=== PATIENT | male | born 1940 | race Caucasian/White ===

== ENCOUNTER → 2019-12-06 10:14 | Outpatient (BNVA) | payer MEDICARE, MEDICAID, SELFPAY | PROVIDERS: Family Provider Nurse Practitioner Family; PCP Nurse Practitioner Family; Visit Provider Nurse Practitioner Family | DX: E78.5 Hyperlipidemia, unspecified (principal); E55.9 Vitamin D deficiency, unspecified; Z00.00 Encounter for general adult medical examination without abnormal findings; I10 Essential (primary) hypertension; M15.9 Polyosteoarthritis, unspecified | CPT/HCPCS: 80053; 80061; 82306; 85025 ==

== ENCOUNTER → 2020-12-03 15:07 | Outpatient (BNVA) | payer MEDICARE, MEDICAID, SELFPAY | PROVIDERS: Family Provider Nurse Practitioner Family; PCP Nurse Practitioner Family; Visit Provider Nurse Practitioner Family | DX: Z00.00 Encounter for general adult medical examination without abnormal findings (principal); I10 Essential (primary) hypertension; E55.9 Vitamin D deficiency, unspecified; E78.5 Hyperlipidemia, unspecified; M15.9 Polyosteoarthritis, unspecified; Z12.5 Encounter for screening for malignant neoplasm of prostate | CPT/HCPCS: 80053; 80061; 82306; 84443; 85025; G0103 ==

== ENCOUNTER → 2021-03-30 13:24 | Outpatient (BNVA) | payer MEDICARE, MEDICAID, SELFPAY | PROVIDERS: Family Provider Nurse Practitioner Family; PCP Nurse Practitioner Family; Visit Provider Nurse Practitioner Family | DX: M10.9 Gout, unspecified (principal); I10 Essential (primary) hypertension | CPT/HCPCS: 80053; 84550; 85025 ==

== ENCOUNTER 2021-06-01 03:51 | Inpatient (IN) | payer MEDICARE, SELFPAY ==
[2021-06-01] VITALS (16 sets, daily range): BP systolic 108–171; BP diastolic 77–105; PULSE 65–99; RESP 16–24; TEMP 36.4–36.9; O2SAT 87–96; BMI 28.7
--- NOTE | 2021-06-01 04:14 | XRR_ITS ---
PROCEDURE INFORMATION: Exam: XR Chest Exam date and time: 06/01/2021 4:14 AM Age: 80 years old Clinical indication: Shortness of breath; Patient HX: Patient states has been having steadily worsening SOB over last few months. Claims no prior cardiopulmonary issues. TECHNIQUE: Imaging protocol: XR of the chest. Views: 1 view. COMPARISON: No relevant prior studies available. FINDINGS: Lungs: Low lung volumes. There is extensive bilateral airspace opacities, in a predominantly peripheral distribution. Pleural spaces: Unremarkable. No pleural effusion. No pneumothorax. Heart/Mediastinum: Mildly enlarged heart. Bones/joints: Unremarkable. XR/XR chest 1V portable [id number] IMPRESSION: Imaging findings concerning for multifocal pneumonia.
--- NOTE | 2021-06-01 04:27 | ED_ITS ---
HPI - SOB/Dyspnea General: Chief Complaint: Shortness of Breath/Dyspnea Stated Complaint: Sob\Cough Time Seen by Provider: 06/01/21 04:09 Source: patient Mode of arrival: ambulatory Limitations: no limitations History of Present Illness: HPI Narrative: 80-year-old male presents here with increasing shortness of breath over the last 3 months he states that he is just having increasing dyspnea that got much worse this week he states that it is much worse with any exertion improved with rest has had a slight cough denies any fever denies any vomiting denies any chest pain. He has not seen anyone last 3 months for his shortness of breath Associated symptoms: Deny abdominal pain, chest pain, fever(s), nausea or vo miting Review of Systems Const: Denies: fever(s), chills, body aches or change in appetite Eyes: Denies: blurry vision or eye discomfort ENMT: Denies: throat pain or dental pain Card: Denies: chest pain Resp: Reports: dyspnea and non-productive cough GI: Denies: abdominal pain, nausea, vomiting or diarrhea : Denies: dysuria Musc: Denies: neck pain or back pain Skin/Breast: Denies: rash Neuro: Denies: headache(s) Psych: Denies: depression [place]/Lymph: Denies: easy bruising All/Imm: Denies: urticaria PFSH ED PFSH: Medical History Hyperlipidemia Hypertension Osteoarthritis Vitamin D deficiency Family History Family/Other Cancer CAD (coronary artery disease) Social History Quit status (tobacco): has quit using tobacco Second hand smoke exposure: No Alcohol intake: never Lives independently: Yes Household members: spouse Marital status: Current occupational status: retired Current occupational exposures/hazards: No History of recent travel: No Current gender identity: Male Physical Exam Const: COMMON NORMALS: patient oriented x3 and healthy appearing GENERAL APPEARANCE: in distress HENMT: COMMON NORMALS: normocephalic and atraumatic HEAD & SCALP: normocephalic and atraumatic Eye: COMMON NORMALS: Equal, round and reactive pupils present and EOMs intact bilaterally PUPIL: Yes Equal, round and reactive pupils present Neck/C-Spine: COMMON NORMALS: full ROM and supple Chest: COMMONS NORMALS: normal inspection of the chest and normal palpation of entire chest wall Resp: COMMON NORMALS: No retractions and No use of accessory muscles EFFORT & INSPECTION: Yes tachypneic and Yes respiratory distress AUSCULTATION: rales Cardio: COMMON NORMALS: regular rate, regular rhythm and No murmurs present (Cardio) RATE: regular rate RHYTHM: regular rhythm GI: COMMON NORMALS: Normal to inspection, nondistended, normoactive bowel sounds present, Soft to palpation, non-tender and no masses PALPATION: Yes Soft to palpation Extremity: COMMON NORMALS: normal to inspection and full ROM Neuro: COMMON NORMALS: patient oriented x3, moves all extremities and no focal motor deficits Psych: COMMON NORMALS: mental status grossly normal, Normal thought process present and cooperative THOUGHT PROCESS: Normal thought process present Skin: COMMON NORMALS: no rashes or lesions noted and no wounds GENERAL SKIN EXAM: no rashes or lesions noted Course Vital Signs: Vital signs: Vital Signs Temperature 98.5 F 06/01/21 03:59 Pulse Rate 99 06/01/21 03:59 Respiratory Rate 21 H 06/01/21 03:59 Blood Pressure 108/105 06/01/21 03:59 Pulse Oximetry 87 L 06/01/21 03:59 MDM - SOB/Dyspnea MDM Narrative: Medical decision making narrative: Patient presents with cough dyspnea x-ray does show bilateral pneumonia patient here is in the 80s on room air is requiring oxygen start IV antibiotics and spoke to hospitalist will admit. Lab Data: Labs: Lab Results 06/01/21 06/01/21 06/01/21 04:30 04:30 04:30 WBC 9.2 10^3/uL 10^3/ uL (4.0-10.0) RBC 4.75 10^6/uL 10^6 /uL (4.1-5.3) Hgb 14.6 g/dL g/dL (11.7-16.6) Hct 44.5 % % (42.0-52.0) MCV 93.7 fl fl (80-94) MCH 30.7 pg pg (28.0-34.0) MCHC 32.8 g/dL g/dL (30.0-36.0) RDW 12.3 % % (12.1-15.1) Plt Count 435 10^3/cmm H 10 ^3/cmm (130-400) MPV 11.6 fL H fL (7.4-10.4) Neut % (Auto) 68.9 % % Lymph % (Auto) 16.5 % % [place] % (Auto) 11.8 % % Eos % (Auto) 1.0 % % Baso % (Auto) 1.5 % % Neut # (Auto) 6.32 10^3/uL 10^3 /uL (1.8-7.7) Lymph # (Auto) 1.5 10^3/uL 10^3/ uL (0.8-4.8) [place] # (Auto) 1.1 10^3/uL H 10^ 3/uL (0.2-0.9) Eos # (Auto) 0.1 10^3/uL 10^3/ uL (0.0-0.8) Baso # (Auto) 0.1 10^3/uL 10^3/ uL (0.0-0.1) Nucleated RBC % (a uto) 0 % % Nucleated RBCs # 0.0 /100WBC /100W BC PT 13.70 SECONDS SEC ONDS (12.1-14.9) INR 1.02 (0.8-1.2) SARS-CoV-2 Ag (Rap id) Negative (Negative) Imaging Data^: CXR: Attestation: I personally reviewed and interpreted this imaging study as follows: Radiologist's impression: [address] [address] XRay Report Signed Patient: Oj Stewart Unit #: [id number] : 1940 Age/Sex: 80 / M ADM Date: 06/01/21 Loc: ER Room/Bed: Attending Dr: Ordering Provider/Ordering MD: Peyman Clayton MD Date of Service: 06/01/21 Procedure(s): XR chest 1V portable [id number] Accession Number(s): [id number] Report Number: [id number] PROCEDURE INFORMATION: Exam: XR Chest Exam date and time: 06/01/2021 4:14 AM Age: 80 years old Clinical indication: Shortness of breath; Patient HX: Patient states has been having steadily worsening SOB over last few months. Claims no prior cardiopulmonary issues. TECHNIQUE: Imaging protocol: XR of the chest. Views: 1 view. COMPARISON: No relevant prior studies available. FINDINGS: Lungs: Low lung volumes. There is extensive bilateral airspace opacities, in a predominantly peripheral distribution. Pleural spaces: Unremarkable. No pleural effusion. No pneumothorax. Heart/Mediastinum: Mildly enlarged heart. Bones/joints: Unremarkable. XR/XR chest 1V portable [id number] IMPRESSION: Imaging findings concerning for multifocal pneumonia. Dictated By: Eris Ramirez Signed By: Eris Ramirez Signed Date/Time: 06/01/21 0436 DD/ 0414 EKG Data^: EKG 1: Attestation: I personally reviewed and interpreted this EKG as follows: EKG Interpretation Date: 06/01/21 EKG interpretation time: 04:07 Interpretation: nsr hr [address] or t wave abnormalities qrs 138 qtc 429 Discharge Plan Discharge Patient Disposition: Admitted As Inpatient Clinical Impression: Acute respiratory failure with hypoxia Community acquired pneumonia Qualifiers: Laterality: unspecified laterality Qualified Code(s): J18.9 - Pneumonia, unspecified organism Condition: Stable Coding Level of Care Code ED Patrol Police Sergeant for Chg Fwd Exam Comprehensive
[2021-06-01] MEDS: ipratropium-albuterol 3 mL Neb INHALATION ×4 (04:35→20:20)
[2021-06-01 04:55] LABS: Basophils # 0.1 10^3/uL (0.0-0.1); Basophils % 1.5 %; Eosinophils # 0.1 10^3/uL (0.0-0.8); Hematocrit 44.5 % (42.0-52.0); Hemoglobin 14.6 g/dL (11.7-16.6); Lymphocytes # 1.5 10^3/uL (0.8-4.8); Lymphocytes % 16.5 %; Mean Corpuscular HGB Conc 32.8 g/dL (30.0-36.0); Mean Corpuscular Hemoglobin 30.7 pg (28.0-34.0); Mean Corpuscular Volume 93.7 fl (80-94); Mean Platelet Volume 11.6 fL (7.4-10.4); Monocytes # 1.1 10^3/uL (0.2-0.9); Monocytes % 11.8 %; Neutrophils # 6.32 10^3/uL (1.8-7.7); Neutrophils % 68.9 %; Nucleated Red Blood Cells % 0 %; Platelet Count 435 10^3/cmm (130-400); Red Blood Count 4.75 10^6/uL (4.1-5.3); Red Cell Distribution Width 12.3 % (12.1-15.1); White Blood Count 9.2 10^3/uL (4.0-10.0)
[2021-06-01 05:06] LABS: INR 1.02 (0.8-1.2)
[2021-06-01 05:12] LABS: SARS Covid-2 Antigen Negative (Negative)
[2021-06-01] MEDS: cefTRIAXone 1,000 MG in sodium chloride 0.9% (plus) 50 ML 100 MG IV (05:18)
[2021-06-01 05:30] LABS: Alanine Aminotransferase 11 U/L (0-41); Albumin Level 3.4 g/dL (3.5-5.2); Alkaline Phosphatase 79 IU/L (40-130); Anion Gap 14.4 (5-19); Aspartate Amino Transferase 16 U/L (0-40); Blood Urea Nitrogen 12 mg/dL (8-23); Carbon Dioxide 26 mmol/L (22-29); Chloride 104 mmol/L (98-107); Globulin 4.1 g/dL (1.3-4.6); Glucose 111 mg/dL (65-115); NT Pro B Type Natriuretic Pept 426 pg/mL (0-450); Osmolality Calculated 292 mOsm/kg (285-295); Potassium 3.4 mmol/L (3.5-5.1); Sodium 141 mmol/L (136-145); Total Bilirubin 0.3 mg/dL (0.15-1.2); Total Protein 7.5 g/dL (6.6-8.7)
[2021-06-01] MEDS: azithromycin 500 MG in sodium chloride 0.9% 250 ML 250 MG IV (05:48)
--- NOTE | 2021-06-01 06:47 | CTR_ITS ---
PROCEDURE INFORMATION: Exam: CTA Chest With Contrast Exam date and time: 06/01/2021 6:47 AM Age: 80 years old Clinical indication: Shortness of breath; Additional info: Evalute for pe, multiocal infiltrates on cxr TECHNIQUE: Imaging protocol: Computed tomographic angiography of the chest with contrast. 3D rendering (Not supervised by radiologist): MIP and/or 3D reconstructed images were created by the technologist. Radiation optimization: All CT scans at this facility use at least one of these dose optimization techniques: automated exposure control; mA and/or kV adjustment per patient size (includes targeted exams where dose is matched to clinical indication); or iterative reconstruction. Contrast material: OMNI 350; Contrast volume: 78 ml; Contrast route: INTRAVENOUS (IV); COMPARISON: CR (CHEST, ) 06/01/2021 4:17 AM RADIATION DOSE METRICS: Total DLP (mGy-cm): 574.66 FINDINGS: Pulmonary arteries: Normal. No pulmonary emboli. Aorta: Unremarkable. No aortic aneurysm. No aortic dissection. Trachea: Small tracheal diverticulum noted. Lungs: There is ground-glass opacities scattered throughout both lungs in a predominantly peripheral distribution. Pleural spaces: There is a small bilateral pleural effusions, left greater than right. Heart: Normal heart size. Coronary atherosclerotic calcifications seen. No pericardial effusion. Lymph nodes: Unremarkable. No enlarged lymph nodes. Liver: Hepatic cysts noted, the largest measuring 3.8 cm. The liver is otherwise unremarkable. Bones/joints: Degenerative changes of the spine seen. Soft tissues: Unremarkable. CT/CT angio chest PE protcl [id number] IMPRESSION: 1. No pulmonary embolus. 2. Commonly reported imaging features of (COVID-19) pneumonia are present. Other processes such as influenza pneumonia and organizing pneumonia, as can be seen with drug toxicity and connective tissue disease, can cause a similar imaging pattern. 3. Small bilateral pleural effusions.
--- NOTE | 2021-06-01 07:02 | PM.HP ---
Providers/Chief Complaint Admitting Physician: Kim Andrew MD Primary Care Provider: ZEN Johnson Chief Complaint: Sob\Cough History of Present Illness Oj Stewart is a 80 year old male presenting with 2 weeks of generalized weakness, malaise, dry cough and dyspnea. States dyspnea has been getting progressively worse which brought him to the ER. Denies past h/o COPD, CAD, smoking. His tested + for COVID one week ago but has since improved. He has not been tested prior to today. CXR shows B/L multifocal pneumonia. Rapid Covid neg, pending PCR. Ccurrently on 3lpm supplemental 02. No past 02 requirement. Denies chest pain, palpitations. ROS negative for diarrhea, vomiting , fever. unvaccinated for covid. Review of Systems General: Reports: 10 or more systems reviewed and unremarkable except in HPI and below Const: Denies: fever(s), chills or body aches Eyes: Denies: change in vision, blurry vision or photophobia ENMT: Reports: hoarseness; Denies: throat pain, enlarged tonsils, odynophagia or nasal congestion Card: Denies: chest pain, palpitations, irregular heart rhythm, edema, swelling of feet/ankles, lightheadedness, pre-syncope, dyspnea on exertion or orthopnea Resp: Denies: dyspnea, productive cough, non-productive cough, wheezing, stridor, pain on inspiration, change in phlegm color, hemoptysis or chest congestion GI: Denies: abdominal pain, nausea, vomiting, hematemesis, coffee ground emesis, dysphagia, heartburn, diarrhea, constipation, GI cramping, change in stool character, hematochezia or melena : Denies: flank pain, dysuria, urinary frequency, urinary urgency, urinary hesitancy or hematuria Musc: Denies: neck pain, back pain, extremity pain, joint swelling, joint warmth or deformity Neuro: Denies: headache(s), numbness in extremities, weakness in extremities, sensory changes, difficulty walking, frequent falls, dizziness, vertigo, behavioral changes, Slurred speech present or seizure-like activity Psych: Denies: anxiety, depression, suicidal ideation or homicidal ideation Endo: Denies: polyuria, polydipsia, tired all the time, cold intolerance or hot flashes Gabino/Lymph: Denies: easy bruising or easy bleeding Medications/Allergies Home Medications Medication Instructions Recorded Confirmed Last Taken Type aspirin 81 mg tablet,delayed 81 mg PO DAILY 12/06/19 03/30/21 Unknown History release omega-3 fatty acids 1,000 mg 1,000 mg PO DAILY 12/06/19 03/30/21 Unknown History capsule cholecalciferol (vitamin D3) 50 50 mcg PO DAILY #30 tab 12/19/19 03/30/21 Unknown Rx mcg (2,000 unit) tablet ibuprofen 600 mg tablet 600 mg PO Q6H PRN #120 tab 12/03/20 03/30/21 Unknown Rx lisinopril 40 mg tablet 40 mg PO DAILY #90 tab 12/03/20 03/30/21 Unknown Rx pravastatin 20 mg tablet 20 mg PO DAILY #90 tab 12/03/20 03/30/21 Unknown Rx methylprednisolone 4 mg tablets in See Rx Instructions PO PER PKG DIR 03/30/21 03/30/21 Unknown Rx a dose pack #21 ea Allergies Allergy/AdvReac Type Severity Reaction Status Date / Time No Known Allergies Allergy Verified 03/30/21 10:01 PFSH Acute PFSH: Medical History Hyperlipidemia Hypertension Osteoarthritis Vitamin D deficiency Family History Family/Other Cancer CAD (coronary artery disease) Social History Quit status (tobacco): has quit using tobacco Second hand smoke exposure: No Alcohol intake: never Lives independently: Yes Household members: spouse Marital status: Current occupational status: retired Current occupational exposures/hazards: No History of recent travel: No Current gender identity: Male Vitals/I&O/Wt Last Vital Signs Temp 98.5 F 06/01/21 03:59 Pulse 99 06/01/21 03:59 Resp 20 H 06/01/21 06:18 BP 150/79 06/01/21 06:18 Pulse Ox 95 06/01/21 06:18 05/31/21 06/01/21 06/01/21 22:59 06:59 14:59 Intake Total 50 / 50 Balance 50 / 50 Weight last 48 hrs Weight 90.718 kg Physical Exam Narrative: EXAM NARRATIVE: General: No acute distress, AO x3 HEENT: PERRLA, pupils bilaterally equal and reactive, pallors not present Chest:scattered wheezing and coarse breath sounds B/L CVS: S1-S2 regular, no murmurs, no tachycardia, no gallops, no rubs Abdomen: Soft, nontender, no organomegaly, bowel sounds present Neuro: No focal deficits, no facial deformity, AO x3, power 5/5 in all limbs Extremities: no edema, clubbing or cyanosis Neuro: COMMON NORMALS: no focal motor deficits Data : 06/01/21 04:30 06/01/21 04:30 Attestation for Other Data: I personally reviewed and interpreted the following: Other data: Laboratory Results WBC 9.2 10^3/uL (4.0-10.0) 06/01/21 04:30 RBC 4.75 10^6/uL (4.1-5.3) 06/01/21 04:30 Hgb 14.6 g/dL (11.7-16.6) 06/01/21 04:30 Hct 44.5 % (42.0-52.0) 06/01/21 04:30 MCV 93.7 fl (80-94) 06/01/21 04:30 MCH 30.7 pg (28.0-34.0) 06/01/21 04:30 MCHC 32.8 g/dL (30.0-36.0) 06/01/21 04:30 RDW 12.3 % (12.1-15.1) 06/01/21 04:30 Plt Count 435 10^3/cmm (130-400) H 06/01/21 04:30 MPV 11.6 fL (7.4-10.4) H 06/01/21 04:30 Neut % (Auto) 68.9 % 06/01/21 04:30 Lymph % (Auto) 16.5 % 06/01/21 04:30 [place] % (Auto) 11.8 % 06/01/21 04:30 Eos % (Auto) 1.0 % 06/01/21 04:30 Baso % (Auto) 1.5 % 06/01/21 04:30 Neut # (Auto) 6.32 10^3/uL (1.8-7.7) 06/01/21 04:30 Lymph # (Auto) 1.5 10^3/uL (0.8-4.8) 06/01/21 04:30 [place] # (Auto) 1.1 10^3/uL (0.2-0.9) H 06/01/21 04:30 Eos # (Auto) 0.1 10^3/uL (0.0-0.8) 06/01/21 04:30 Baso # (Auto) 0.1 10^3/uL (0.0-0.1) 06/01/21 04:30 Nucleated RBC % (auto) 0 % 06/01/21 04:30 Nucleated RBCs # 0.0 /100WBC 06/01/21 04:30 PT 13.70 SECONDS (12.1-14.9) 06/01/21 04:30 INR 1.02 (0.8-1.2) 06/01/21 04:30 Sodium 141 mmol/L (136-145) 06/01/21 04:30 Potassium 3.4 mmol/L (3.5-5.1) L 06/01/21 04:30 Chloride 104 mmol/L (98-107) 06/01/21 04:30 Carbon Dioxide 26 mmol/L (22-29) 06/01/21 04:30 Anion Gap 14.4 (5-19) 06/01/21 04:30 BUN 12 mg/dL (8-23) 06/01/21 04:30 Creatinine 1.2 mg/dL (0.7-1.2) 06/01/21 04:30 GFR Calculation Not Reportable 06/01/21 04:30 Glucose 111 mg/dL (65-115) 06/01/21 04:30 Calculated Osmolality 292 mOsm/kg (285-295) 06/01/21 04:30 Calcium 8.0 mg/dL (8.5-10.5) L 06/01/21 04:30 Total Bilirubin 0.3 mg/dL (0.15-1.2) 06/01/21 04:30 AST 16 U/L (0-40) 06/01/21 04:30 ALT 11 U/L (0-41) 06/01/21 04:30 Alkaline Phosphatase 79 IU/L (40-130) 06/01/21 04:30 NT-Pro-B Natriuret Pep 426 pg/mL (0-450) 06/01/21 04:30 Total Protein 7.5 g/dL (6.6-8.7) 06/01/21 04:30 Albumin 3.4 g/dL (3.5-5.2) L 06/01/21 04:30 Globulin 4.1 g/dL (1.3-4.6) 06/01/21 04:30 SARS-CoV-2 Ag (Rapid) Negative (Negative) 06/01/21 04:30 Impressions Chest X-Ray 06/01/21 04:14 IMPRESSION: Imaging findings concerning for multifocal pneumonia. A&P Assessment and plan (1) Bilateral pneumonia: presenting with multifocal B/L pneumonia high suspicion for covid given antecedent clinical history, unvaccinated check covid PCR, influenza Ag, sputum cx and MRSA PCR CTA chest to evaluate for PE additionally start presumptively on dexamethasone 6mg IVP q24h, can be discontinued if COVID negative Empiric abx Zosyn and azithromycin iel awaiting covid pcr Check procal, d dimer, CRP duoneb q6h and budesonide q12h inhalation supplemental 02 to keep sat >92% Status: Acute (2) Hypoxia: as a result of multifocal pneumonia , management as above Status: Acute Attestations Medical Necessity Statement*: >2midnight admission will be needed for above defined management Coding Level of Care Code 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
[2021-06-01] MEDS: iohexol 350 mg/mL 100 mL Btl IV (07:12)
[2021-06-01 07:36] LABS: Procalcitonin 0.05 ng/mL (0-0.5)
[2021-06-01 07:53] LABS: C Reactive Protein 7.2 mg/L (0.0-4.9)
[2021-06-01] MEDS: lisinopril 20 mg Tablet 40 MG PO (08:24)
[2021-06-01] MEDS: atorvastatin 40 mg Tablet 20 MG PO (08:24)
[2021-06-01] MEDS: aspirin 81 mg EC Tablet PO (08:24)
[2021-06-01] MEDS: dexamethasone 4 mg/mL INJ 6 MG IVP (08:25)
[2021-06-01] MEDS: enoxaparin 40 mg/0.4 mL Syringe SUBCUT (08:25)
[2021-06-01] MEDS: pantoprazole DR 40 mg Tablet PO (08:25)
[2021-06-01] MEDS: piperacillin-tazobactam 3.375 GM in sodium chloride 0.9% (plus) 50 ML IV ×3 (08:25→22:47)
[2021-06-01] MEDS: budesonide 0.5 mg/2 mL Neb INHALATION ×2 (10:11→20:20)
[2021-06-01 11:07] LABS: Adenovirus Not Detected (NOT DETECT); Chlamydia Pneumoniae Not Detected (NOT DETECT); Coronavirus 229E,HKU1,NL63,OC4 Not Detected (NOT DETECT); Human Metapneumovirus Not Detected (NOT DETECT); Human Rhinovirus/Enterovirus Not Detected (NOT DETECT); Influenza A Not Detected (NOT DETECT); Influenza A H1 Not Detected (NOT DETECT); Influenza A H1-2009 Not Detected (NOT DETECT); Influenza A H3 Not Detected (NOT DETECT); Influenza B Not Detected (NOT DETECT); Mycoplasma Pneumoniae Not Detected (NOT DETECT); Parainfluenza Virus Type 1 Not Detected (NOT DETECT); Parainfluenza Virus Type 2 Not Detected (NOT DETECT); Parainfluenza Virus Type 3 Not Detected (NOT DETECT); Parainfluenza Virus Type 4 Not Detected (NOT DETECT); Respiratory Syncytial Virus A Not Detected (NOT DETECT); Respiratory Syncytial Virus B Not Detected (NOT DETECT); SARS-COV-2 Detected (NOT DETECT)
--- NOTE | 2021-06-01 13:16 | ECG_ITS ---
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 Measurements Intervals [place] Rate: 89 P: 28 GA: 169 QRS: 3 QRSD: 138 T: -7 QT: 382 QTc: 467 Interpretive Statements SINUS RHYTHM WITH OCCASIONAL VENTRICULAR PREMATURE COMPLEXES RIGHT BUNDLE BRANCH BLOCK [120+ ms QRS DURATION, UPRIGHT V1, 40+ ms S IN I/aVL/V4/V5/V6] No previous ECG available for comparison Electronically Signed On 06-01-2021 20:51:28 SUPERVISOR POWDERED SUGAR by Alfonso Newby M.D. [id number]
--- NOTE | 2021-06-01 19:51 | P.PN_ITS ---
Subjective Subjective: Interval history: Dysphasia dyspneic with any exertion. Denies chest pain. No nausea or vomiting. Soft BM. Vitals/I&O/Wt Last Vital Signs Temp 98.2 F 06/01/21 19:05 Pulse 83 06/01/21 19:05 Resp 17 06/01/21 19:05 BP 160/77 06/01/21 19:05 Pulse Ox 93 06/01/21 19:05 06/01/21 06/01/21 06/01/21 06:59 14:59 22:59 Intake Total 50 / 50 300 / 300 240 / 540 Balance 50 / 50 300 / 300 240 / 540 Weight last 48 hrs Weight 90.718 kg Physical Exam Const: COMMON NORMALS: no acute distress and patient oriented x3 HENMT: COMMON NORMALS: oropharynx normal Neck/C-Spine: COMMON NORMALS: no JVD Resp: COMMON NORMALS: normal respiratory effort and clear to auscultation bilaterally AUSCULTATION: clear to auscultation bilaterally Cardio: COMMON NORMALS: no JVD, regular rhythm, S1 normal heart sound present, S2 normal heart sound present and No murmurs present (Cardio) RHYTHM: regular rhythm HEART SOUNDS: S1 normal heart sound present and S2 normal heart sound present GI: COMMON NORMALS: Normal to inspection, nondistended, normoactive bowel sounds present, Soft to palpation and non-tender PALPATION: Yes Soft to palpation Extremity: COMMON NORMALS: no joint enlargement and no pedal edema Neuro: COMMON NORMALS: patient oriented x3 and moves all extremities Skin: COMMON NORMALS: no rashes or lesions noted GENERAL SKIN EXAM: no rashes or lesions noted Data : 06/01/21 04:30 06/01/21 04:30 Micro: Microbiology 06/01/21 08:42 Blood Culture - Preliminary Blood SPECIMEN COLLECTED 06/01/21 08:37 Blood Culture - Preliminary Blood SPECIMEN COLLECTED A&P Assessment and plan (1) COVID-19: Severe COVID-19, PCR positive. Hypoxia requiring 2 L of oxygen by nasal cannula. Decadron, start remdesivir. Follow-up CRP, D-dimer. Continue oxygen support. Lovenox VTE prophylaxis. Empiric antibiotic coverage for now as below. Status: Acute (2) Bilateral pneumonia: As above. Continue empiric Zosyn, azithromycin for now. CTA chest negative for PE. Procalcitonin 0.05. Check procal, d dimer, CRP duoneb q6h and budesonide q12h inhalation supplemental 02 to keep sat >92% Status: Acute (3) Hypoxia: as a result of multifocal pneumonia , management as above Status: Acute Additional A&P Information Hypokalemia: Replaced Attestations Medical Necessity Statement*: Admission for assessment management of hypoxia secondary to severe COVID-19. 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
[2021-06-01] MEDS: potassium chloride ER 20 mEq Tablet PO (20:08)
--- NOTE | 2021-06-01 20:15 | PC.NURSE ---
Shift report received from Yanna Cohen RN. Patient in bed/awake. Denies pain. O2 2L NC. IV patent. No needs voiced at this time.
[2021-06-01] MEDS: remdesivir 200 MG in sodium chloride 0.9% (100 ml) 60 ML 100 MG IV (20:53)
[2021-06-02] VITALS (11 sets, daily range): BP systolic 135–170; BP diastolic 64–85; PULSE 67–92; RESP 16–18; TEMP 36.7; O2SAT 85–97
--- NOTE | 2021-06-02 01:34 | PC.NURSE ---
Patient in bed awake. Denies pain. No s/s of pain or discomfort. No needs voiced at this time.
[2021-06-02] MEDS: ipratropium-albuterol 3 mL Neb INHALATION ×2 (03:01→08:00)
[2021-06-02 06:24] LABS: Basophils % 0.3 %; Eosinophils % 0.3 %; Hematocrit 39.6 % (42.0-52.0); Hemoglobin 13.3 g/dL (11.7-16.6); Lymphocytes # 1.1 10^3/uL (0.8-4.8); Lymphocytes % 9.4 %; Mean Corpuscular HGB Conc 33.6 g/dL (30.0-36.0); Mean Corpuscular Hemoglobin 31.5 pg (28.0-34.0); Mean Corpuscular Volume 93.8 fl (80-94); Mean Platelet Volume 12.4 fL (7.4-10.4); Monocytes # 1.5 10^3/uL (0.2-0.9); Monocytes % 12.7 %; Neutrophils % 76.7 %; Nucleated Red Blood Cells % 0 %; Platelet Count 341 10^3/cmm (130-400); Red Blood Count 4.22 10^6/uL (4.1-5.3); White Blood Count 11.8 10^3/uL (4.0-10.0)
[2021-06-02 06:40] LABS: Alanine Aminotransferase 9 U/L (0-41); Alkaline Phosphatase 70 IU/L (40-130); Anion Gap 15.8 (5-19); Aspartate Amino Transferase 12 U/L (0-40); Blood Urea Nitrogen 14 mg/dL (8-23); Carbon Dioxide 23 mmol/L (22-29); Chloride 108 mmol/L (98-107); Creatinine Clr Calc Pharmacy 67.8517; Globulin 3.7 g/dL (1.3-4.6); Glucose 137 mg/dL (65-115); Osmolality Calculated 299 mOsm/kg (285-295); Potassium 3.8 mmol/L (3.5-5.1); Sodium 143 mmol/L (136-145); Total Bilirubin 0.2 mg/dL (0.15-1.2); Total Protein 6.7 g/dL (6.6-8.7)
[2021-06-02 06:45] LABS: C Reactive Protein 6.9 mg/L (0.0-4.9)
[2021-06-02 07:26] LABS: D Dimer 14.47 ug/mIFEU (0-0.59)
[2021-06-02] MEDS: budesonide 0.5 mg/2 mL Neb INHALATION (07:58)
[2021-06-02 08:04] LABS: Slide Review Slide Review Perform
[2021-06-02] MEDS: piperacillin-tazobactam 3.375 GM in sodium chloride 0.9% (plus) 50 ML IV (08:14)
[2021-06-02] MEDS: atorvastatin 40 mg Tablet 20 MG PO (08:15)
[2021-06-02] MEDS: aspirin 81 mg EC Tablet PO (08:15)
[2021-06-02] MEDS: pantoprazole DR 40 mg Tablet PO (08:15)
[2021-06-02] MEDS: lisinopril 20 mg Tablet 40 MG PO (08:15)
[2021-06-02] MEDS: azithromycin 250 mg Tablet 500 MG PO (08:15)
[2021-06-02] MEDS: enoxaparin 40 mg/0.4 mL Syringe SUBCUT (08:16)
[2021-06-02] MEDS: acetaminophen 325 mg Tablet 650 MG PO (08:16)
--- NOTE | 2021-06-02 08:20 | USCV_ITS ---
Oj Stewart Age: 80 Gender: M : 1940 Exam Date: 06/02/2021 10:15 Ordering Phys: Navjot Mcmanus MD Technologist: SPENSER [place] [facility] [place]: COVID POSITIVE. ELEV D-DIMER. NO HX DVT PER PATIENT. HISTORY: COVID POSITIVE. ELEV D-DIMER. NO HX DVT PER PATIENT. PROCEDURES: The venous duplex Doppler examination of both lower extremities was performed in the standard fashion. The following venous structures were evaluated: common femoral vein, profunda vein, proximal portion of the greater saphenous vein, superficial femoral vein, and the popliteal vein. FINDINGS: Normal 2-D Doppler and augmentation and compressibility throughout the lower extremity venous structures. Additional imaging through the proximal calf veins also reveals no thrombus. Limited evaluation of the greater saphenous vein is patent with no thrombus. CONCLUSIONS No DVT bilateral lower extremities. Dr. Brigida Shrestha DO (Electronically Signed) Final Date: 02 June 2021 13:08 S
[2021-06-02] MEDS: dexamethasone 4 mg/mL INJ 6 MG IVP (08:30)
[2021-06-02] MEDS: enoxaparin 60 mg/0.6 mL Syringe 50 MG SUBCUT (10:54)
--- NOTE | 2021-06-02 14:27 | P.DS_ITS ---
Discharge Providers Date of Admission: 06/01/21 05:17 Date of Discharge: June 02, 2021 Attending Provider at Admission: Kim Andrew MD Attending Provider at Discharge: Navjot Mcmanus Primary Care Provider: ZEN Johnson Diagnoses at Discharge Discharge Diagnosis (1) COVID-19: Status: Acute (2) Bilateral pneumonia: Status: Acute (3) Hypoxia: Status: Acute Reason for Visit Reason for Visit: Sob\Cough Hospital Course Hospital Course 80-year-old gentleman with 2 weeks of generalized weakness, malaise, dry cough, dyspnea, was started on oxygen support 3 L nasal cannula initially, with noted bilateral groundglass opacities on CT angiogram, no PE, subsequent tested positive for COVID-19 which was started on Decadron remdesivir, empirically also treated for possible community-acquired pneumonia with Zosyn and azithromycin, supportive measures, as well as initiated on anticoagulation after finding of D- dimer of 14.4. Additionally lower extremity venous duplex obtained which did not show DVT. Due to elevated risk of VTE as per discussion with him will receive extended thromboprophylaxis with Xarelto after discharge. He requested to return home today, stating he is feeling much better, his oxygenation has come down with requirement down to 2 L nasal cannula. He states has been getting up and walking around in his room. Overall he is feeling better, and feels he is continuing to improve. Wants to go home. We are requesting home O2 evaluation for an oxygen will be ordered. He understands to seek medical attention immediately in case of worsening of his condition. Please follow-up for continued improvement of hypoxia, resolution of pneumonia. Please also follow-up regarding episodes of morning stiffness in his joints. Physical Exam Const: COMMON NORMALS: no acute distress and patient oriented x3 HENMT: COMMON NORMALS: oropharynx normal Neck/C-Spine: COMMON NORMALS: no JVD Resp: COMMON NORMALS: normal respiratory effort and clear to auscultation bilaterally AUSCULTATION: clear to auscultation bilaterally Cardio: COMMON NORMALS: no JVD, regular rhythm, S1 normal heart sound present, S2 normal heart sound present and No murmurs present (Cardio) RHYTHM: regular rhythm HEART SOUNDS: S1 normal heart sound present and S2 normal heart sound present GI: COMMON NORMALS: Normal to inspection, nondistended, normoactive bowel sounds present, Soft to palpation and non-tender PALPATION: Yes Soft to palpation Extremity: COMMON NORMALS: no joint enlargement and no pedal edema Neuro: COMMON NORMALS: patient oriented x3 and moves all extremities Skin: COMMON NORMALS: no rashes or lesions noted GENERAL SKIN EXAM: no rashes or lesions noted Discharge Data Data Completed and Pending: Completed Studies During Hospitalization Category Date Time Status CT angio chest PE protcl 17942 Rout ine Cat Scan 06/01/21 06:47 Completed XR chest 1V yuli ble 16583 Urgent Exams 06/01/21 04:14 [place] [address] Routin e Ultrasound 06/02/21 08:20 Completed Pending at discharge Category Date Time Status Blood Culture Sta t Lab 06/01/21 08:42 Results C Reactive Protei n AM LABS Lab 06/03/21 04:00 Ordered Complete Blood Co unt w/Auto AM LABS Lab 06/03/21 04:00 Ordered Complete Blood Co unt w/Auto AM LABS Lab 06/04/21 04:00 Ordered Complete Blood Co unt w/Auto AM LABS Lab 06/05/21 04:00 Ordered Comprehensive Met abolic Panel AM LA BS Lab 06/03/21 04:00 Ordered Comprehensive Met abolic Panel AM LA BS Lab 06/04/21 04:00 Ordered Comprehensive Met abolic Panel AM LA BS Lab 06/05/21 04:00 Ordered D Dimer AM LABS Lab 06/03/21 04:00 Ordered MRSA by PCR Stat Lab 06/01/21 08:50 Received Sputum Culture an d Gram Stain Stat Lab 06/01/21 06:47 Uncollected Labs from last 24 hours 06/02/21 06/02/21 06/02/21 06:00 06:00 06:00 WBC RBC Hgb Hct MCV MCH MCHC RDW Plt Count MPV Neut % (Auto) Lymph % (Auto) [place] % (Auto) Eos % (Auto) Baso % (Auto) Neut # (Auto) Lymph # (Auto) [place] # (Auto) Eos # (Auto) Baso # (Auto) Nucleated RBC % (a uto) Nucleated RBCs # D-Dimer 14.47 H Sodium 143 Potassium 3.8 Chloride 108 H Carbon Dioxide 23 Anion Gap 15.8 BUN 14 Creatinine 1.0 GFR Calculation Not Reportable Glucose 137 H Calculated Osmolal ity 299 H Calcium 8.0 L Total Bilirubin 0.2 AST 12 ALT 9 Alkaline Phosphata se 70 C-Reactive Protein 6.9 H Total Protein 6.7 Albumin 3.0 L Globulin 3.7 06/02/21 06:00 WBC 11.8 H RBC 4.22 Hgb 13.3 Hct 39.6 L MCV 93.8 MCH 31.5 MCHC 33.6 RDW 13.0 Plt Count 341 MPV 12.4 H Neut % (Auto) 76.7 Lymph % (Auto) 9.4 [place] % (Auto) 12.7 Eos % (Auto) 0.3 Baso % (Auto) 0.3 Neut # (Auto) 9.10 H Lymph # (Auto) 1.1 [place] # (Auto) 1.5 H Eos # (Auto) 0.0 Baso # (Auto) 0.0 Nucleated RBC % (a uto) 0 Nucleated RBCs # 0.0 D-Dimer Sodium Potassium Chloride Carbon Dioxide Anion Gap BUN Creatinine GFR Calculation Glucose Calculated Osmolal ity Calcium Total Bilirubin AST ALT Alkaline Phosphata se C-Reactive Protein Total Protein Albumin Globulin Vitals: Last Vital Signs Temp 98.1 F 06/02/21 11:16 Pulse 73 06/02/21 11:16 Resp 18 06/02/21 11:16 BP 143/78 06/02/21 11:16 Pulse Ox 93 06/02/21 11:16 Discharge Plan Discharge Patient Disposition: Home Condition: Stable Prescriptions: New Xarelto 10 mg tablet 10 mg PO DAILY 35 Days Qty: 35 RF: 0 azithromycin 250 mg Tablet 500 mg PO DAILY Qty: 5 RF: 0 benzonatate 100 mg Capsule 100 mg PO TID PRN (Reason: Cough) Qty: 30 RF: 0 cefdinir 300 mg capsule 300 mg PO BID 5 Days Qty: 10 RF: 0 Continued aspirin 81 mg tablet,delayed release (DR/EC) 81 mg PO DAILY RF: 0 pravastatin 20 mg tablet 20 mg PO DAILY@14 RF: 0 lisinopril 40 mg tablet 40 mg PO QAM RF: 0 cholecalciferol (vitamin D3) 50 mcg (2,000 unit) tablet 50 mcg PO DAILY PRN (Reason: pt states takes when he can remember ) RF: 0 Discontinued ibuprofen 600 mg tablet 600 mg PO Q6H PRN (Reason: pain) Qty: 120 RF: 5 Discharge Orders: Discharge Order (Routine); Ordered 06/02/21 Ordered By: Navjot Mcmanus Referrals: Pia Wlilis FNP [Primary Care Provider] - 4-7 days Discharge Diet: Cardiac Discharge Activity: Increase activity as tolerated, Limit activity as instructed and Oxygen as instructed Patient Instructions: Rivaroxaban (By mouth), Using Oxygen at Home (GEN), Hypoxia (GEN), COVID-19 (Coronavirus Disease 2019) (GEN), Long COVID (GEN) Activity Restrictions/Additional Instructions: Continue oxygen at home, maintain saturation 90-92% or above. Keep oxygen away from any source of the fire due to severe fire hazard, risk of airway vasquez and other injuries. Please follow-up with your primary doctor to reassess for continued resolution of hypoxia and pneumonia. Please maintain isolation for total 20 days since the onset of symptoms. Discussed with your doctor if you get persistent symptoms of shortness of b reath, for consideration of referral and evaluation of possible additional causes. Please note as per discussion you are started also on extended thromboprophylaxis posthospitalization with Xarelto which for now is arranged for 35 days. Please discuss with your primary provider regarding morning joint stiffness, discussed consideration of assessment of other types of arthritis. Discharge Attestations Time Spent in Discharge Care*: greater than 30 min Quality Metrics Clinical Quality Measures During this hospital stay, did patient experience: None Coding Level of Care Code Acute [facility] [place] note Exam Comprehensive Diagnoses COVID-19 U07.1 Bilateral pneumonia J18.9 Hypoxia R09.02
--- NOTE | 2021-06-03 17:07 | PC.SOCIAL ---
Addendum entered by Sima Paredes, RN 06/03/21 17:15: Spoke with at length and explained change to medication from Xarelto to Eliquis and if his PCP feels this type of med should continue they will need to order a medication for same use that will be covered or more affordable. was able to repeat this information and verbalized understanding. Explained to his provider may not decide to continue medication if he is up ambulating well etc. Original Note: Notification received that Xarelto was not covered under insurance. Called Dr Mcmanus and order given to change to Eliquis 2.5 mg BID 35 days #70 Insurance did not cover this and per pharmacist eryn the family would not be able to do. She knows them well. Provided a 30 day free trial co pay card. Per pharmacist will only cover the 30 days. This was completed.
== END 2021-06-02 17:36 | disposition home or self-care (01) | DRG 177 ==
LOC: ER 05:31 → MEDSURG 05:40
PROVIDERS: Admitting Provider Student in an Organized Health Care Education/Training Program; Emergency Provider Emergency Medicine; PCP Nurse Practitioner Family; Visit Provider Internal Medicine
DX: U07.1 COVID-19 (principal); J18.9 Pneumonia, unspecified organism; E78.5 Hyperlipidemia, unspecified; I10 Essential (primary) hypertension; M19.90 Unspecified osteoarthritis, unspecified site; E55.9 Vitamin D deficiency, unspecified; Z87.891 Personal history of nicotine dependence; Z79.82 Long term (current) use of aspirin
CPT/HCPCS: 36415; 71045; 71275; 80053; 83880; 84145; 85025; 85378; 85610; 86140; 87040; 87205; 87426; 87635; 87641; 93005; 93970; 94640; 96365; 96367; 96372; 99285; J0456; J0696; J1100; J1650; J2543; J7050; J7626; Q0144; Q9967

== ENCOUNTER → 2021-06-08 11:08 | Outpatient (BNVA) | payer MEDICARE, SELFPAY | PROVIDERS: PCP Nurse Practitioner Family; Visit Provider Nurse Practitioner Family | DX: U07.1 COVID-19 (principal); R09.02 Hypoxemia; J18.9 Pneumonia, unspecified organism | CPT/HCPCS: 71046 ==

== ENCOUNTER → 2021-09-09 15:27 | Outpatient (BNVA) | payer MEDICARE, SELFPAY | PROVIDERS: PCP Nurse Practitioner Family; Visit Provider Nurse Practitioner Family | DX: R79.89 Other specified abnormal findings of blood chemistry (principal); I10 Essential (primary) hypertension; E55.9 Vitamin D deficiency, unspecified | CPT/HCPCS: 80053; 80061; 82306; 83735; 84443; 85025; 85379 ==

== ENCOUNTER → 2022-03-08 17:36 | Outpatient (BNVA) | payer MEDICARE, SELFPAY | PROVIDERS: PCP Nurse Practitioner Family; Visit Provider Nurse Practitioner Family | DX: I10 Essential (primary) hypertension (principal); M10.9 Gout, unspecified; E55.9 Vitamin D deficiency, unspecified; E78.5 Hyperlipidemia, unspecified; M15.9 Polyosteoarthritis, unspecified; Z12.5 Encounter for screening for malignant neoplasm of prostate | CPT/HCPCS: 80053; 80061; 82306; 84443; 84550; 85025; G0103 ==

== ENCOUNTER → 2022-09-01 17:20 | Outpatient (BNVA) | payer MEDICARE, SELFPAY | PROVIDERS: PCP Nurse Practitioner Family; Visit Provider Nurse Practitioner Family | DX: I10 Essential (primary) hypertension (principal) | CPT/HCPCS: 80053; 80061; 84443; 85025 ==

== ENCOUNTER → 2022-09-28 15:00 | Outpatient (BNVA) | payer MEDICARE, SELFPAY | PROVIDERS: PCP Nurse Practitioner Family; Visit Provider Surgery | DX: K40.90 Unilateral inguinal hernia, without obstruction or gangrene, not specified as recurrent (principal) | CPT/HCPCS: 99203 ==

== ENCOUNTER 2022-10-18 09:23 | Day surgery (SDC) | payer MEDICARE, SELFPAY ==
[2022-10-18] VITALS (10 sets, daily range): BP systolic 126–179; BP diastolic 64–90; PULSE 56–70; RESP 16–18; TEMP 36.4–36.6; O2SAT 98–100; BMI 25.0
[2022-10-18] MEDS: sodium chloride 0.9% 1,000 ML 30 ML IV (10:12)
--- NOTE | 2022-10-18 10:43 | ECG_ITS ---
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 Measurements Intervals [place] Rate: 59 P: 55 FL: 174 QRS: 1 QRSD: 145 T: -3 QT: 436 QTc: 433 Interpretive Statements SINUS BRADYCARDIA RIGHT BUNDLE BRANCH BLOCK [120+ ms QRS DURATION, UPRIGHT V1, 40+ ms S IN I/aVL/V4/V5/V6] Compared to ECG 06/01/2021 04:07:00 Sinus rhythm no longer present Ventricular premature complex(es) no longer present Electronically Signed On 10-18-2022 16:35:34 CDT by Hernando Parra M.D. [id number]
--- NOTE | 2022-10-18 12:15 | W.PM.OPSUD ---
Surgery/Procedure H&P Update DATE OF PROCEDURE: October 18, 2022 DATE H&P PERFORMED: 09/28/22 H&P UPDATE INFORMATION: I have reviewed H&P completed within last 30 days, I have examined patient prior to procedure and No changes to prior documentation PLANNED PROCEDURE: Operation Date: 10/18/22 12:05 Proposed Procedures p 37271 lap right inguincal hernia w mesh K40.90(Right) - Rj Pineda DO
--- NOTE | 2022-10-18 12:19 | ANES.PREANE2 ---
Pre-Anesthetic Assessment Height/Weight: Height 1.78 m Weight 78.925 kg Temp Pulse Resp BP Pulse Ox O2 Del Method 97.6 F 70 18 179/90 98 Room Air 10/18/22 09:59 10/18/22 09:59 10/18/22 09:59 10/18/22 09:59 10/18/22 09:59 10/18/22 09:59 Operation Date: 10/18/22 12:05 Proposed Procedures p 23810 lap right inguincal hernia w mesh K40.90(Right) - Rj Pineda DO Familial anesthetic complications: none Was Beta Kolby taken within 24 hours: N/A Was Clonidine taken within 24 hours: N/A Last intake: Intake Last Liquid Date 10/17/22 Last Liquid Time 15:00 Last Solid Date 10/17/22 Last Solid Time 15:00 Social No alcohol and No tobacco (h/o smoking) Exam alert, oriented x 3 and regular rate & rhythm Airway Submandibular: within normal limits Cervical ROM: within normal limits Mallampati: Class II Dentition: false (upper) Pulmonary Chronic Obstructive Pulmonary Disease CV/HEM Arrythmia (RBBB) and Hypertension Metabolic Hyperlipidemia Anesthetic Plan ASA status: 2 Anesthesia: General Medications/Allergies Home Medications Medication Instructions Recorded Confirmed Last Taken Type aspirin 81 mg tablet,delayed 81 mg PO DAILY 12/06/19 10/18/22 10/17/22 History release ibuprofen 600 mg tablet 600 mg PO TID PRN pain #90 tabs 03/08/22 10/18/22 10/07/22 Rx lisinopril 40 mg tablet 40 mg PO DAILY 10/18/22 10/18/22 10/18/22 History pravastatin 20 mg tablet 20 mg PO QPM 10/18/22 10/18/22 10/17/22 History Allergies Allergy/AdvReac Type Severity Reaction Status Date / Time No Known Allergies Allergy Verified 10/18/22 09:58 Current Medications Generic Name Dose Route Start Last Admin Trade Name Freq PRN Reason Stop Dose Admin Sodium Chloride 1,000 mls @ 30 mls/hr 10/18/22 09:45 10/18/22 10:12 Sodium Chloride 0.9% IV 10/19/22 09:44 30 mls/hr .Q24H SONAM Administration PFSH Anesthesia Medical History Hyperlipidemia Hypertension Osteoarthritis Vitamin D deficiency Surgical History Hx of colonoscopy 10 yrs ago No pertinent past surgical history Family History Family/Other Cancer CAD (coronary artery disease) Social History Smoking and tobacco status: former smoker (quit many years ago can't remember the date) Quit status (tobacco): has quit using tobacco Year quit tobacco: many yrs ago ? date Second hand smoke exposure: No Alcohol intake: never Substance/Drug Use: never Caregiver/support person: Yes (spouse) Lives independently: Yes Household members: spouse Marital status: Current occupational status: retired Current occupational exposures/hazards: No Current gender identity: Male Special chaparrita needs: No Data Anesthesia Cardiac Studies: No Data to Display
[2022-10-18] MEDS: ceFAZolin 2,000 MG in sodium chloride 0.9% (plus) 50 ML 100 MG IV (13:17)
[2022-10-18] MEDS: lidocaine-epi 2% 20 mL INJ INJECTION (14:01)
--- NOTE | 2022-10-18 14:15 | PM.OP ---
Operative Report Date of procedure: October 18, 2022 Pre-op diagnosis: Right inguinal hernia Post-op diagnosis: other (Right pantaloon hernia) Procedure done: Laparoscopic repair of right inguinal hernia with mesh Implants: Extra-large 3D max Bard mesh Surgeon: Dr. Rj Pineda DO Anesthesia: General Estimated blood loss (mL): 5 Complications: None apparent Brief History: This is a very pleasant 82-year-old gentleman who presented my office with a right inguinal hernia. Laparoscopic repair with mesh was indicated. The risks and benefits were explained and documented. Procedure: Patient was wheeled into the operative room and placed on the OR table in a supine position. Abdomen was inspected prepped and draped in usual sterile fashion. Time-out was performed and all present were in agreement. A 15 blade scalpel was used to make 1.2 centimeter incision infraumbilically. Combination of sharp and blunt dissection was performed down to the anterior rectus sheath which was opened sharply. The dissecting balloon was then inserted into the space of Retzius and blown up. We put the camera into the port and identified that we were in the correct space. I then placed 2 5 millimeter trocars suprapubically in the midline. I then used endokitners to bluntly dissect in the space of Retzius out laterally. A pantaloon inguinal hernia was identified on the right. Blunt dissection was performed to dissect down the hernia sac until the vas deferens dove medially. An extra-large right inguinal mesh was then placed into the space of Retzius. The mesh was unrolled and tacked once medially at the pubic bone. The mesh laid out nicely over the spermatic cord. I watched the hernia sac remained in place as insufflation was removed. Incisions were closed with 4-0 Monocryl in a subcuticular interrupted fashion. Skin glue was applied. Patient tolerated the procedure well.
--- NOTE | 2022-10-18 14:25 | ANE.PACU2 ---
Inpatient post-anesthesia follow up: Airway intact: Yes Vital signs: Temperature 97.7 F Pulse Rate 60 Respiratory Rate 18 Blood Pressure 146/86 Pulse Oximetry 100 Oxygen Delivery Me thod Simple Mask Oxygen Flow Rate 6 Fraction of Inspir ed Oxygen Hydration adequate: Yes Nausea and vomiting: No Pain level: 3 Mental status: Baseline
[2022-10-18] MEDS: HYDROcodone-acetaminophen 7.5-325 mg Tablet 1 TAB PO (14:54)
== END 2022-10-18 15:45 | disposition home or self-care (01) ==
PROVIDERS: PCP Nurse Practitioner Family; Visit Provider Surgery
PROC: (CPT 49650; principal; 2022-10-18 12:05)
DX: K40.90 Unilateral inguinal hernia, without obstruction or gangrene, not specified as recurrent (principal); J44.9 Chronic obstructive pulmonary disease, unspecified; I10 Essential (primary) hypertension; E78.5 Hyperlipidemia, unspecified; I45.10 Unspecified right bundle-branch block; Z79.82 Long term (current) use of aspirin; Z87.891 Personal history of nicotine dependence
CPT/HCPCS: 49650; 51702; 93005; C1781; J0131; J0690; J1100; J1170; J2370; J2405; J2704; J2710; J3010; J3490; J7030

== ENCOUNTER → 2022-11-09 10:28 | Outpatient (BNVA) | payer MEDICARE, SELFPAY | PROVIDERS: PCP Nurse Practitioner Family; Visit Provider Surgery | DX: Z98.890 Other specified postprocedural states (principal); Z87.19 Personal history of other diseases of the digestive system | CPT/HCPCS: 99024 ==

== ENCOUNTER → 2023-02-28 11:28 | Outpatient (BNVA) | payer MEDICARE, SELFPAY | PROVIDERS: PCP Nurse Practitioner Family; Visit Provider Nurse Practitioner Family | DX: I10 Essential (primary) hypertension (principal); E78.5 Hyperlipidemia, unspecified | CPT/HCPCS: 80053; 80061; 85025 ==

== ENCOUNTER → 2023-08-30 14:51 | Outpatient (BNVA) | payer MEDICARE, SELFPAY | PROVIDERS: PCP Nurse Practitioner Family; Visit Provider Nurse Practitioner Family | DX: I10 Essential (primary) hypertension (principal); Z12.5 Encounter for screening for malignant neoplasm of prostate; E78.5 Hyperlipidemia, unspecified | CPT/HCPCS: 80053; 80061; 84443; 85025; G0103 ==

== ENCOUNTER → 2024-02-22 12:00 | Outpatient (BNVA) | payer MEDICARE, SELFPAY | PROVIDERS: PCP Nurse Practitioner Family; Visit Provider Nurse Practitioner Family | DX: E55.9 Vitamin D deficiency, unspecified (principal); I10 Essential (primary) hypertension | CPT/HCPCS: 80053; 80061; 82306; 85025 ==

== ENCOUNTER → 2024-10-02 10:00 | Outpatient (BNVA) | payer MEDICARE, SELFPAY | PROVIDERS: PCP Nurse Practitioner Family; Visit Provider Nurse Practitioner Family | DX: I10 Essential (primary) hypertension (principal); Z12.5 Encounter for screening for malignant neoplasm of prostate; E78.5 Hyperlipidemia, unspecified; M15.9 Polyosteoarthritis, unspecified | CPT/HCPCS: 80053; 80061; 84443; 85025; G0103 ==

== ENCOUNTER → 2025-04-16 11:20 | Outpatient (BNVA) | payer MEDICARE, SELFPAY | PROVIDERS: PCP Nurse Practitioner Family; Visit Provider Nurse Practitioner Family | DX: I10 Essential (primary) hypertension (principal) | CPT/HCPCS: 80053; 80061; 84443; 85025 ==